=== PATIENT | male | born 1975 | race Caucasian/White ===

== ENCOUNTER 2022-01-15 12:54 | Emergency (ER) | payer OTHER ==
[~2022-01-15] VITALS: Ht 165.1 cm; Wt 86.2 kg
[~2022-01-15 12:54] MED LIST: CARDURA 2MG TAB2 MG PO; CLARITIN10 MG PO; COZAAR100 MG PO; CYCLOBENZAPRINE5 MG PO; ECOTRIN81 MG PO; NORCO 7.5-3251 EACH PO; NORVASC 5 MG TAB5 MG PO; ONDANSETRON ODT4 MG PO; PERCOCET 5-3251 EACH PO; PRAVACHOL40 MG PO; PRILOSEC10 M1 PO; PROZAC40 MG PO; TRICOR145 MG PO; VITAMIN D350000 UNIT PO
[2022-01-15] MEDS ORDERED: ATORVASTATIN CA20 MG PO (14:04)
[2022-01-15] MEDS ORDERED: ISOSORBIDE MONO60 MG PO (14:04)
[2022-01-15] MEDS ORDERED: PRALUENT PEN INJ (14:05)
[2022-01-15] MEDS ORDERED: PROTONIX 40 MG40 M1 PO (14:06)
[2022-01-15] MEDS ORDERED: SYMBICORT 16010.2 GM INH (14:06)
[2022-01-15] MEDS ORDERED: CARVEDILOL25 MG PO (14:06)
[2022-01-15] MEDS ORDERED: CLOPIDOGREL75 MG PO (14:07)
[2022-01-15 14:35] LABS: RED BLOOD COUNT 4.92 M/UL (4.20-5.50); WHITE BLOOD COUNT 17.9 K/UL (4.5-11.0)
[2022-01-15 15:04] LABS: BUN/CREATININE RATIO 15 (0-10)
== END 2022-01-15 16:20 | disposition other institution (70) ==
LOC: ER1 12:54
PROVIDERS: Nurse Practitioner
DX: S02.31XA Fracture of orbital floor, right side, initial encounter for closed fracture (principal); S00.83XA Contusion of other part of head, initial encounter; R07.89 Other chest pain; J44.9 Chronic obstructive pulmonary disease, unspecified; E78.5 Hyperlipidemia, unspecified; I10 Essential (primary) hypertension; I25.2 Old myocardial infarction; Z95.5 Presence of coronary angioplasty implant and graft; Y04.0XXA Assault by unarmed brawl or fight, initial encounter
CPT/HCPCS: 70450; 70486; 71045; 72125; 80053; 82550; 82553; 84484; 85025; 93005; 96374; 96375; 99285; J1170; J2270; J2405